=== PATIENT | female | born 1965 | race Two or more races ===

== ENCOUNTER 2019-08-31 06:20 | Day surgery (SDC) | payer OTHER ==
[~2019-08-31 06:20] MED LIST: ANTIVERT25 M1 PO; ATENOLOL50 MG; KETO10TA2 PO; LIPITOR20 MG PO; LOSARTAN POTASS50 MG PO; SKELAXIN800 MG PO; medrol pack
== END 2019-08-31 11:05 | disposition home or self-care (01) ==
LOC: AMB-ENDOS 06:20 → ADM 14:30 → AMB-ENDOS 14:30
PROVIDERS: ATTEND Surgery
DX: K62.89 Other specified diseases of anus and rectum (principal); K60.1 Chronic anal fissure; Z12.11 Encounter for screening for malignant neoplasm of colon